=== PATIENT | male | born 2005 ===

== ENCOUNTER 2024-04-26 00:01 | Emergency (ER) | payer MEDICAID, OTHER | END 2024-04-26 04:12 | disposition home or self-care (01) | LOC: JP.ED 00:01 | DX: S61.512A Laceration without foreign body of left wrist, initial encounter (principal); Z86.16 Personal history of COVID-19; Z90.89 Acquired absence of other organs; Z88.0 Allergy status to penicillin; X78.9XXA Intentional self-harm by unspecified sharp object, initial encounter | CPT/HCPCS: 99285 ==